=== PATIENT | female | born 1930 | race Caucasian/White ===

== ENCOUNTER → 2019-05-06 | Outpatient (CLI) | payer OTHER ==
[~2019-05-06] MED LIST: ASPI81CH PO; ATOR10 PO
[2019-05-06 14:35] LABS: BASOPHILS ABSOLUTE AUTO 0.04 K/mm3 (0.00-0.23); BASOPHILS PERCENT AUTO 1 % (0-2); EOSINOPHILS ABSOLUTE AUTO 0.17 K/mm3 (0.00-0.68); EOSINOPHILS PERCENT AUTO 2 % (0-6); Hematocrit 39.9 % (33.0-51.0); Hemoglobin 13.5 g/dL (11.5-16.0); IMMATURE GRAN ABSOLUTE AUTO 0.02 K/mm3 (0.00-0.10); IMMATURE GRAN PERCENT AUTO 0 % (0-1); LYMPHOCYTES ABSOLUTE AUTO 2.67 K/mm3 (0.84-5.20); LYMPHOCYTES PERCENT AUTO 36 % (21-46); MONOCYTES ABSOLUTE AUTO 0.56 K/mm3 (0.16-1.47); MONOCYTES PERCENT AUTO 8 % (4-13); Mean Corpuscular HGB 31.5 pg (26.0-34.0); Mean Corpuscular HGB Conc 33.8 g/dL (31.5-36.5); Mean Corpuscular Volume 93 fL (80-100); Mean Platelet Volume 10.9 fL (9.1-12.4); NEUTROPHILS ABSOLUTE AUTO 3.87 K/mm3 (1.96-9.15); NEUTROPHILS PERCENT AUTO 53 % (41-73); Platelet Count 170 K/mm3 (150-400); RDW Coefficient Variation 13.5 % (11.7-14.2); RDW Standard Deviation 46.2 fL (35.1-46.3); Red Blood Cell Count 4.28 M/mm3 (3.80-5.20); White Blood Cell Count 7.33 K/mm3 (4.00-11.30)
[2019-05-06 14:49] LABS: Alanine Aminotransfer (ALT/SGP 17 U/L (12-78); Albumin, Blood 3.9 g/dL (3.4-5.0); Albumin/Globulin Ratio 1.1 (0.8-1.8); Alk Phos 75 U/L (40-126); Anion Gap 8 mmol/L (6-16); Aspartate Aminotrans (AST/SGOT 17 U/L (12-37); Bilirubin, Total 0.7 mg/dL (0.1-1.0); Blood Urea Nitrogen 11 mg/dL (8-24); Bun/Creatinine Ratio 10.6 (12.0-20.0); CO2, Blood 27 mmol/L (21-32); Calcium, Blood 9.9 mg/dL (8.5-10.1); Chloride, Blood 107 mmol/L (98-108); Creatinine, Blood 1.04 mg/dL (0.40-1.00); Globulin, Blood 3.4 g/dL (2.2-4.0); Glomerular Filtration Rate 50 (60-); Glucose, Blood 93 mg/dL (70-99); Potassium, Blood 4.4 mmol/L (3.5-5.5); Sodium, Blood 142 mmol/L (136-145); Total Protein, Blood 7.3 g/dL (6.4-8.2)
[2019-05-06 14:54] LABS: Troponin I <0.017 ng/mL (0.000-0.040)
== END | disposition home or self-care (01) ==
LOC: LAB EV 14:30 → LAB SHORT 14:30
PROVIDERS: Physician Assistant
DX: I10 Essential (primary) hypertension (principal)
CPT/HCPCS: 80053; 84484; 85025

== ENCOUNTER 2020-06-27 20:34 | Inpatient (IN) | payer OTHER ==
[~2020-06-27] VITALS: Ht 162.6 cm; Wt 51.9 kg
[2020-06-27 21:32] LABS: BASOPHILS ABSOLUTE AUTO 0.09 K/mm3 (0.00-0.23); BASOPHILS PERCENT AUTO 1 % (0-2); EOSINOPHILS ABSOLUTE AUTO 0.07 K/mm3 (0.00-0.68); EOSINOPHILS PERCENT AUTO 0 % (0-6); Hematocrit 40.2 % (33.0-51.0); Hemoglobin 12.8 g/dL (11.5-16.0); IMMATURE GRAN ABSOLUTE AUTO 0.93 K/mm3 (0.00-0.10); IMMATURE GRAN PERCENT AUTO 5 % (0-1); LYMPHOCYTES PERCENT AUTO 10 % (21-46); MONOCYTES ABSOLUTE AUTO 1.37 K/mm3 (0.16-1.47); MONOCYTES PERCENT AUTO 7 % (4-13); Mean Corpuscular HGB Conc 31.8 g/dL (31.5-36.5); Mean Corpuscular Volume 94 fL (80-100); Mean Platelet Volume 10.1 fL (9.1-12.4); NEUTROPHILS ABSOLUTE AUTO 15.28 K/mm3 (1.96-9.15); NEUTROPHILS PERCENT AUTO 78 % (41-73); NRBC ABSOLUTE 0.03 K/mm3 (0.00-0.02); NRBC Auto 0.2 /100 WBC (0.0-0.2); Platelet Count 192 K/mm3 (150-400); RDW Coefficient Variation 18.3 % (11.7-14.2); RDW Standard Deviation 60.5 fL (35.1-46.3); Red Blood Cell Count 4.26 M/mm3 (3.80-5.20); White Blood Cell Count 19.64 K/mm3 (4.00-11.30)
[2020-06-27] MEDS ORDERED: LISI5 PO (21:46)
[2020-06-27 21:58] LABS: Albumin, Blood 2.7 g/dL (3.4-5.0); Albumin/Globulin Ratio 0.7 (0.8-1.8); Bilirubin, Total 1.1 mg/dL (0.1-1.0); Calcium, Blood 10.9 mg/dL (8.5-10.1); Creatinine, Blood 1.13 mg/dL (0.40-1.00); Globulin, Blood 4.1 g/dL (2.2-4.0); Potassium, Blood 4.2 mmol/L (3.5-5.5); Thyroid Stimulating Hormone 2.85 uIU/mL (0.360-4.800); Total Protein, Blood 6.8 g/dL (6.4-8.2)
[2020-06-27 22:24] LABS: D-Dimer, Quantitative >35.20 mg/L FEU (0.00-0.52); International Normalized Ratio 1.17; Prothrombin Time Results 12.4 Sec (9.7-11.5)
[2020-06-27 22:43] LABS: Magnesium, Blood 2.5 mg/dL (1.6-2.4)
[2020-06-28 00:25] LABS: Blood, Urine 1+ (Neg); Glucose Qualitative, Urine Neg (Neg); Ketones, Urine 1+ (Neg); Nitrite, Urine Neg (Neg); Protein, Urine 2+ (Neg); Source, Urine Catheter; Specific Gravity, Urine 1.025 (1.003-1.022); Urobilinogen, Urine 1+ (Normal)
[2020-06-28 01:08] LABS: Leukocyte Esterase, Urine Neg (Neg)
[2020-06-28 01:11] LABS: Appearance, Urine Hazy (Clear); Bilirubin, Urine 1+ (Neg); Color, Urine Amber (P-Yellow)
[2020-06-28 01:13] LABS: Bacteria Rare /hpf; Red Blood Cells, Urine 0-2 /hpf (0-2); Squamous Epithelial Cells Few /hpf (Few); White Blood Cells, Urine 0-2 /hpf (0-5)
[2020-06-28 02:28] LABS: BASOPHILS ABSOLUTE AUTO 0.14 K/mm3 (0.00-0.23); BASOPHILS PERCENT AUTO 1 % (0-2); EOSINOPHILS ABSOLUTE AUTO 0.08 K/mm3 (0.00-0.68); EOSINOPHILS PERCENT AUTO 0 % (0-6); Hematocrit 38.2 % (33.0-51.0); Hemoglobin 11.9 g/dL (11.5-16.0); IMMATURE GRAN PERCENT AUTO 5 % (0-1); LYMPHOCYTES ABSOLUTE AUTO 1.91 K/mm3 (0.84-5.20); LYMPHOCYTES PERCENT AUTO 9 % (21-46); MONOCYTES ABSOLUTE AUTO 1.41 K/mm3 (0.16-1.47); MONOCYTES PERCENT AUTO 7 % (4-13); Mean Corpuscular HGB 29.8 pg (26.0-34.0); Mean Corpuscular HGB Conc 31.2 g/dL (31.5-36.5); Mean Corpuscular Volume 96 fL (80-100); Mean Platelet Volume 10.4 fL (9.1-12.4); NEUTROPHILS ABSOLUTE AUTO 15.77 K/mm3 (1.96-9.15); NEUTROPHILS PERCENT AUTO 78 % (41-73); Platelet Count 174 K/mm3 (150-400); RDW Coefficient Variation 18.2 % (11.7-14.2); RDW Standard Deviation 61.7 fL (35.1-46.3); Red Blood Cell Count 3.99 M/mm3 (3.80-5.20); White Blood Cell Count 20.31 K/mm3 (4.00-11.30)
[2020-06-28 02:47] LABS: Albumin, Blood 2.4 g/dL (3.4-5.0); Albumin/Globulin Ratio 0.6 (0.8-1.8); Bilirubin, Total 1.1 mg/dL (0.1-1.0); Calcium, Blood 10.3 mg/dL (8.5-10.1); Creatinine, Blood 1.03 mg/dL (0.40-1.00); Globulin, Blood 3.9 g/dL (2.2-4.0); Potassium, Blood 4.2 mmol/L (3.5-5.5); Total Protein, Blood 6.3 g/dL (6.4-8.2)
--- NOTE | 2020-06-28 03:20 | NUR ---
PCU ADMIT PT BROUGHT TO PCU-05 FROM ER BY BENNY @ APPROX 0200. PT A&O X4, [place]O [place], PLEASANT & COOPERATIVE. BP LOW, MONITOR SHOWING ST, POSSIBLE AFLUTTER, HR 140's. SPO2 > 92% ON RA. NS GTT INFUSING PER ORDERS. PT IN BED W/ CALL LIGHT IN REACH.
--- NOTE | 2020-06-28 05:43 | NUR ---
HR 140's CALL TO MD SANTO TO REPORT PT HR STILL 140's DESPITE NS GTT INFUSING PER ORDERS. ORDER FOR IV LOPRESSOR PREVIOUSLY HELD D/T BP, PER CLINICAL JUDGEMENT. MD SANTO W/ INSTRUCTION TO GIVE ONE TIME IV LOPRESSOR AT THIS TIME. WILL CONTINUE TO MONITOR.
--- NOTE | 2020-06-28 06:48 | NUR ---
SHIFT SUMMARY PT A&O X4. HR CONTINUES TO BE ELEVATED DESPITE TREATMENT W/ NS GTT & IV LOPRESSOR. HR W/ BRIEF DECREASE TO 110's AFTER IV LOPRESSOR PUSH, NOW SHOWING HR 140's AGAIN. BP STABLE. NS GTT INFUSING PER ORDERS, 1 BOLUS GIVEN. SPO2 > 92% ON RA. PT W/ ULCERS TO COCCYX. Q2H REPOSITIONING PROVIDED. BLE EDEMA NOTED. WILL CONTINUE TO MONITOR & PROVIDE CARE.
--- NOTE | 2020-06-28 07:46 | NUR ---
ASSUMED CARE AT 0700, REPORT FROM DIOGENES GARCIA. AWAKE AND SITTING IN HIGH FOLWERS IN BED, A/A/OX4, VSS, NS INFUSING AT 100ML/HR AT THIS TIME PER ORDERS, WILL CONTINUE TO MONITOR.
--- NOTE | 2020-06-28 17:53 | NUR ---
SHIFT SUMMARY; A/A/OX4 DURING SHIFT. FAMILY AT BEDSIDE DURING MOST OF DAY. DR. SOSA DISCUSSED NEW LUNG MASS ON CT SCAN WITH FAMILY. FAMILY WILL DECIDE OF FURTHER COARSE OF TREATMENT IN NEXT FEW DAYS. BX VS NO TREATMENT. PLACED ON 1L 02 NC TO MAINTAIN SATS GREATER THAN 92%. HEART RATE REMAINED IN 140'S DURING MORNING. AMIODERONE BOLUS AND DRIP ORDERED BY PROVIDER. CURRENT RATE 33ML/HR. HEART RATE STEADILY DECREASING TO 120-130 AT THIS TIME. WILL CONTINUE TO MONITOR AND TREAT UNTIL CHANGE OF SHIFT.
--- NOTE | 2020-06-29 00:35 | NUR ---
REASSESSED CODE STATUS WITH PATIENT. PT STILL WANTS FULL CODE.
--- NOTE | 2020-06-29 05:46 | NUR ---
SHIFT SUMMARY PT A&O X4. VSS. SPO2 > 92% ON 1L NC. MONITOR SHOWING ST, HR 120's-130's. AMIODARONE GTT INFUSING PER ORDERS. NO EVENTS OVER NIGHT. PT TIRED & WEAK, SLEEPING MAJORITY OF SHIFT. WILL CONTINUE TO MONITOR & PROVIDE CARE UNTIL REPORT OFF TO DAY SHIFT RN.
--- NOTE | 2020-06-29 17:47 | NUR ---
Initial spiritual care note: Lengthy conversation with pt's son, Charles. He was tearful and appeared emotionally overwhelmed. He told me some family history and how numerous losses have negatively effected pt. Two years ago, she lost a son to cancer. According to Charles, "She began to after that." Pt's other son is currently fighting his own cancer kerns. Charles is from [place] and will be moving here to help with pt and brother. Charles and I had an easy rapport and he responded well to gentle family life counselor/emotional affirmation. Family is non-hindu. Pt appears quite frail and slept peacefully throughout conversation. Charles appears loving and attentive. Plan:Pt will go home on hospice soon. [employer] will remain available.
--- NOTE | 2020-06-29 18:15 | NUR ---
SHIFT SUMMARY; SLEPT DURING MOST OF SHIFT TODAY. FAMILY MET WITH PALLATIVE CARE AND DISCUSSED HOSPICE WITH PROVIDER. HOSPICE ORDERS COMPELTED AND WILL MEET WITH FAMILY TOMORROW. PT TO BE DC'D TO HOME ON HOSPICE TOMORROW AM.
--- NOTE | 2020-06-29 19:30 | NUR ---
CARE ASSUMPTION / CONVERT TO S[facility]US [facility]SH[facility] PT A&O X4. PT CONVERTED FROM AFLUTTER, HR 130's TO SB, HR 48-50's @ 1913. VSS. CONVERSION STRIP PRINTED & PLACED IN CHART. WILL CONTINUE TO MONITOR & PROVIDE CARE.
[2020-06-30 04:47] LABS: BASOPHILS ABSOLUTE AUTO 0.06 K/mm3 (0.00-0.23); BASOPHILS PERCENT AUTO 0 % (0-2); EOSINOPHILS ABSOLUTE AUTO 0.06 K/mm3 (0.00-0.68); EOSINOPHILS PERCENT AUTO 0 % (0-6); Hematocrit 31.5 % (33.0-51.0); Hemoglobin 10.1 g/dL (11.5-16.0); IMMATURE GRAN ABSOLUTE AUTO 0.81 K/mm3 (0.00-0.10); IMMATURE GRAN PERCENT AUTO 5 % (0-1); LYMPHOCYTES ABSOLUTE AUTO 1.58 K/mm3 (0.84-5.20); LYMPHOCYTES PERCENT AUTO 9 % (21-46); MONOCYTES ABSOLUTE AUTO 1.04 K/mm3 (0.16-1.47); MONOCYTES PERCENT AUTO 6 % (4-13); Mean Corpuscular HGB 29.9 pg (26.0-34.0); Mean Corpuscular HGB Conc 32.1 g/dL (31.5-36.5); Mean Corpuscular Volume 93 fL (80-100); Mean Platelet Volume 10.2 fL (9.1-12.4); NEUTROPHILS ABSOLUTE AUTO 13.92 K/mm3 (1.96-9.15); NEUTROPHILS PERCENT AUTO 80 % (41-73); NRBC ABSOLUTE 0.02 K/mm3 (0.00-0.02); NRBC Auto 0.1 /100 WBC (0.0-0.2); Platelet Count 209 K/mm3 (150-400); RDW Coefficient Variation 18.6 % (11.7-14.2); RDW Standard Deviation 61.1 fL (35.1-46.3); Red Blood Cell Count 3.38 M/mm3 (3.80-5.20); White Blood Cell Count 17.47 K/mm3 (4.00-11.30)
[2020-06-30 05:10] LABS: Albumin, Blood 1.9 g/dL (3.4-5.0); Albumin/Globulin Ratio 0.6 (0.8-1.8); Bilirubin, Total 1.1 mg/dL (0.1-1.0); Bun/Creatinine Ratio 22.2 (12.0-20.0); Calcium, Blood 9.4 mg/dL (8.5-10.1); Creatinine, Blood 1.17 mg/dL (0.40-1.00); Globulin, Blood 3.4 g/dL (2.2-4.0); Potassium, Blood 3.8 mmol/L (3.5-5.5); Total Protein, Blood 5.3 g/dL (6.4-8.2)
--- NOTE | 2020-06-30 05:28 | NUR ---
SHIFT SUMMARY PT A&O X4. VSS. PT SLEPT MOST OF THE NIGHT. SPO2 >92% ON 1L NC. PT STATED SHE IS LOOKING FORWARD TO GOING HOME IN THE MORNING. CALL LIGHT WITHIN REACH. WILL CONTINUE TO MONITOR UNTIL END OF SHIFT.
--- NOTE | 2020-06-30 07:30 | NUR ---
pt laying in bed awake a/o to self, cooperative with care, follows commands, viejas, lungs are clear in upper leal, dim in bases, resp even and unlabord, no cough noted, hrr, tele in place running sb in the 50's, edema noted to b/l le, +2 to left +1 to right, dressings to heels for protection, ppp+1, cap refill <3sec, vs in the 90's, afebrile, iv is power glide to right upper arm, site is clear and patent, btx4, abd flat soft nontender, incont of bowel and bladder, attends in place, skin is fragile, mepilex to coccyx for wound, and to heels for protection, jillianew, general weakness, is on bedrest, will be sending home today on hospice, call light in reach.
[2020-06-30] MEDS ORDERED: ACET325 PO (09:32)
[2020-06-30] MEDS ORDERED: Amiodarone HCl200 MG PO (09:34)
[2020-06-30] MEDS ORDERED: AMOCLA500 PO (09:35)
--- NOTE | 2020-06-30 10:45 | NUR ---
pt is going home on hospice, went over discharge instructions with family, they verbalized understanding, new medications were called into [facility], iv removed intact, family getting her dressed, marketing clerk is taking her to the car via wheelchair, pt has all belongings.
== END 2020-06-30 11:01 | disposition hospice, home (50) | DRG 871 ==
LOC: ER 20:34 → PCU 06-28 00:52
PROVIDERS: Emergency Medicine; Internal Medicine; ADMIT Internal Medicine
DX: A41.9 Sepsis, unspecified organism (principal); J85.2 Abscess of lung without pneumonia; J96.01 Acute respiratory failure with hypoxia; R64 Cachexia; Z68.1 Body mass index [BMI] 19.9 or less, adult; I50.20 Unspecified systolic (congestive) heart failure; C34.92 Malignant neoplasm of unspecified part of left bronchus or lung; I10 Essential (primary) hypertension; R65.20 Severe sepsis without septic shock; E78.5 Hyperlipidemia, unspecified; Z86.73 Personal history of transient ischemic attack (TIA), and cerebral infarction without residual deficits; H91.90 Unspecified hearing loss, unspecified ear; I48.91 Unspecified atrial fibrillation
CPT/HCPCS: 36415; 71045; 71250; 78580; 80053; 81001; 83605; 83735; 83880; 84443; 85025; 85379; 85610; 85730; 87040; 87086; 93005; 93010; 93306; 96361-59; 96365-59; 96366; 99285-25; A9270-GY; A9540; C1751; J0282; J1650; J1940; J2543; J7030; J7060; J7120; P9612